=== PATIENT | male | born 1970 | race Caucasian/White ===

== ENCOUNTER 2025-03-08 10:56 | Outpatient (OUT) | payer BC, SELFPAY ==
--- OUTSIDE RECORDS SUMMARY | 2025-02-26 08:40 | XMS_ITS | Encounter Summary ---
Author Organization [facility] Address [address] [place] [address] Care Team Providers Care Sawsmith Name Role Phone Pepe Andrea MD Primary Care Provider [phone] Reason for Visit * Reason Comments Bump on tongue Encounter Details Date Type Department Care Team (Late st Contact Info) Description 02/26/2025 8:40 AM EDT Office Visit [facility] [address] [facility] [address] [place] [address] Beth Lassiter MD [address] [facility] [address] [place] [address] Tongue lesion (Primary Dx) Social History Tobacco Use Types Packs/Day Years Used Date Smoking Tobacco: Never Smokeless Tobacco: Never Alcohol Use Standard Drinks/Week Comments Yes 0 (1 standard drink = 0.6 oz pur e alcohol) Occ Sex and Gender Information Value Date Recorded Sex Assigned at Not on file Legal Sex Male 2:14 PM EDT Gender Identity Not on file Sexual Orientation Not on file documented as of this encounter Last Filed Vital Signs Vital Sign Reading Time Taken Comments Blood Pressure 115/80 02/26/2025 8:33 AM EDT Pulse 69 02/26/2025 8:33 AM EDT Temperature - - Respiratory Rate - - Oxygen Saturation - - Inhaled Oxygen Concentration - - Weight 102 kg (224 lb) 02/26/2025 8:33 AM EDT Height 172.7 cm (5' 8 ) 02/26/2025 8:33 AM EDT Body Mass Index 34.06 02/26/2025 8:33 AM EDT documented in this encounter Progress Notes * Beth Lassiter MD - 02/26/2025 8:40 AM EDT Subjective Patient ID: Jonathan Jones is a 54 y.o. male who presents for Bump on tongue Pt reports one week ago hid dentist found a bump on his tongue she wanted examined. No Pain or bleeding. Pt unaware of lesion till noted by dentist. Review of Systems All other systems reviewed and are negative. No family history on file. Active Ambulatory Problems Diagnosis Date Noted BMI 32.0-32.9,adult 02/23/2025 Depression with anxiety 02/23/2025 Exercise-induced asthma (HCC) 02/23/2025 Shoulder joint pain 02/23/2025 Subacromial impingement of right shoulder 02/23/2025 Resolved Ambulatory Problems Diagnosis Date Noted No Resolved Ambulatory Problems Past Medical History: Diagnosis Date Allergic rhinitis Past Surgical History: Procedure Laterality Date ACHILLES TENDON SURGERY ANKLE ARTHROSCOPY W/ OPEN REPAIR ANTERIOR CRUCIATE LIGAMENT REPAIR No Known Allergies Current Outpatient Medications on File Prior to Visit Medication Sig Dispense Refill Fluticasone-Salmeterol (Wixela Inhub) 100-50 MCG/ACT aerosol powder Inhale 1 puff in the morning and 1 puff before bedtime. 1 each 11 montelukast (Singulair) 4 MG granules Take 4 mg by mouth at bedtime [DISCONTINUED] Fluticasone-Salmeterol 100-50 MCG/ACT aerosol powder No current facility-administered medications on file prior to visit. Objective Last Recorded Vitals Vitals: 02/26/25 0833 BP: 115/80 Pulse: 69 ENT Physical Exam Constitutional Appearance: patient appears well-developed and well-nourished, Head and Face Appearance: head appears normal and face appears atraumatic; Ear Ear comments: Bernabe ears normal Nose External Nose: nares patent bilaterally; external nose normal; Internal Nose: nasal mucosa normal; Oral Cavity/Oropharynx Lips: normal; Teeth: normal; Gums: gingiva normal; Oral mucosa: normal; Hard palate: normal; OC/OP comments: Irregular raised mucosa on dorsal surface of left mid tongue Neck Neck: neck normal; neck palpation normal; Thyroid: thyroid normal; Respiratory Inspection: breathing unlabored; normal breathing rate; Auscultation: breath sounds are clear; Cardiovascular Inspection: extremities are warm and well perfused; no peripheral edema present; Auscultation: regular rate and rhythm; Assessment/Plan Diagnoses and all orders for this visit: Tongue lesion Though I doubt the tongue lesion is malignant, it warrants bx to ensure it is not. Proceed with bx left dorsal tongue documented in this encounter Plan of Treatment Upcoming Encounters Date Type Department Care Team (Late st Contact Info) Description 03/12/2025 4:30 PM EDT Clinical Support [facility] [address] [place] [address] 03/26/2025 4:30 PM EDT Clinical Support [facility] [address] [place] [address] 04/02/2025 4:30 PM EDT Clinical Support [facility] [address] [place] [address] 04/09/2025 4:30 PM EDT Clinical Support [facility] [address] [place] [address] 04/16/2025 4:30 PM EDT Clinical Support [facility] [address] [place] [address] 04/23/2025 4:30 PM EDT Clinical Support [facility] [address] [place] [address] 05/23/2025 4:00 PM EDT Office Visit [facility] [address] [place] [address] Adarsh Mireles MD [address] [place] [address] documented as of this encounter Visit Diagnoses Diagnosis Tongue lesion- Primary Unspecified condition of the tongue documented in this encounter Care Teams Sawsmith Relationship Specialty Start Date End Date Pepe Andrea MD [address] [facility] [place] [address] PCP - General Family Medicine 02/26/25 documented as of this encounter
--- OUTSIDE RECORDS SUMMARY | 2025-03-08 10:58 | XMS_ITS | Encounter Summary ---
Author Organization [facility] Address [address] [place] [address] Care Team Providers Care Leadership Program Internship Name Role Phone Pepe Andrea MD Primary Care Provider [phone] Encounter Details Date Type Department Care Team (Latest Contact Info) Description 02/26/2025 Travel Social History Tobacco Use Types Packs/Day Years [...] on file documented as of this encounter Plan of Treatment Upcoming Encounters Date Type Department Care Team (Late st Contact Info) Description 03/12/2025 4:30 PM EDT Clinical Support [facility] [address] [place] [address] 03/26/2025 4:30 PM EDT Clinical Support [facility] [address] [place] [address] 04/02/2025 4:30 PM EDT Clinical Support [facility] [address] [place] [address] 04/09/2025 4:30 PM EDT Clinical Support [facility] [address] [place] [address] 04/16/2025 4:30 PM EDT Clinical Support [facility] [address] [place] [address] 04/23/2025 4:30 PM EDT Clinical Support [facility] [address] [facility] [place] [address] 05/23/2025 4:00 PM EDT Office Visit [facility] [address] [facility] [place] [address] Adarsh Mireles MD [address] [facility] [place] [address] documented as of this encounter Visit Diagnoses Not on filedocumented in this encounter Care Teams Leadership Program Internship Relationship Specialty Start Date End Date Pepe Andrea MD [address] [facility] [place] [address] PCP - General Family Medicine 02/26/25 documented as of this encounter
--- OUTSIDE RECORDS SUMMARY | 2025-03-08 10:59 | XMS_ITS | Encounter Summary ---
Author Organization [facility] Address [address] [place] [address] Care Team Providers Care Pier Runner Name Role Phone Pepe Andrea MD Primary Care Provider [phone] Encounter Details Date Type Department Care Team (Latest Contact Info) Description 03/06/2025 Outside Procedure [facility] [address] [place] [address] Karen Cain, RN [address] [place], [place] [id number] Seasonal allergic rhinitis, unspecified trigger; Seasonal allergic rhinitis due to pollen; Allergic rhinitis due to animal (cat) (dog) hair and dander Social History Tobacco Use Types Packs/Day Years [...] Clinical Support [facility] [address] [place] [place] [address] 03/26/2025 4:30 PM EDT Clinical Support [facility] [address] [place] [address] 04/02/2025 4:30 PM EDT Clinical Support [facility] [address] [place] [address] 04/09/2025 4:30 PM EDT Clinical Support [facility] [address] [place] [address] 04/16/2025 4:30 PM EDT Clinical Support [facility] [address] [place] [address] 04/23/2025 4:30 PM EDT Clinical Support [facility] [address] [place] [address] 05/23/2025 4:00 PM EDT Office Visit [facility] [address] [place] [address] Adarsh Mireles MD [address] [place] [address] Scheduled Orders Name Type Priority Associated Diagnoses Orde r Schedule Immunotherapy prescription Procedures Routine Seasonal allergic rhinitis, unspecified trigger Seasonal allergic rhinitis due to pollen Allergic rhinitis due to animal (cat) (dog) hair and dander Ordered: 03/06/2025 documented as of this encounter Visit Diagnoses Diagnosis Seasonal allergic rhinitis, unspecified trigger Seasonal allergic rhinitis due to pollen Allergic rhinitis due to animal (cat) (dog) hair and dander documented in this encounter Care Teams Pier Runner Relationship Specialty Start Date End Date Pepe Andrea MD [address] [facility] [place] [place] [address] PCP - General Family Medicine 02/26/25 documented as of this encounter
--- OUTSIDE RECORDS SUMMARY | 2025-03-08 10:59 | XMS_ITS | Clinical Summary ---
Author Organization [facility] Address [address] [place] [address] Care Team Providers Care Calciner Operator Name Role Phone Pepe Andrea MD Primary Care Provider [phone] Allergies No known active allergies Medications montelukast (Singulair) 4 MG granules Take 4 mg by mouth at bedtime Active Fluticasone-Salme terol (Wixela Inhub) 100-50 MCG/ACT aerosol powderIndications :Moderate persistent asthma with acute exacerbation (HCC) Inhale 1 puff in the morning and 1 puff before bedtime. 1 each 11 5 Active Fluticasone-Salme terol 100-50 MCG/ACT aerosol powder 5 02/27/20 25 Discontinu ed(Therapy completed) Active Problems Problem Noted Date Diagnosed Date BMI 32.0-32.9,adult 02/23/2025 Depression with anxiety 02/23/2025 Exercise-induced asthma 02/23/2025 Shoulder joint pain 02/23/2025 Subacromial impingement of right shoulder 2024 Encounters Date Type Department Care Team Description 03/06/2025 Outside Procedure [facility] [address] [place] [address] Karen Cain RN Seasonal allergic rhinitis, unspecified trigger; Seasonal allergic rhinitis due to pollen; Allergic rhinitis due to animal (cat) (dog) hair and dander 02/26/2025 8:40 AM EDT Office Visit [facility] [address] [place] [address] Beth Lassiter MD Tongue lesion (Primary Dx) 02/26/2025 Bamboo flowsheet [facility] [address] [place] [address] Beth Lassiter MD 02/26/2025 Travel 02/12/2025 11:00 AM EDT Office Visit [facility] [address] [facility] [address] [place] [address] Adarsh Mireles MD Moderate persistent asthma with acute exacerbation (HCC) (Primary Dx); Allergic rhinitis due to mold 02/12/2025 Bamboo flowsheet [facility] [address] [facility] [address] [place] [address] Adarsh Mireles MD 02/12/2025 Travel from Last 3 Months Social History Tobacco Use Types Packs/Day Years Used Date Smoking Tobacco: Never Smokeless Tobacco: Never Tobacco Cessation:Counseling Given: Not Answered Alcohol Use Standard Drinks/Week Comments Yes 0 (1 standard drink = 0.6 oz pur e alcohol) Occ Sex and Gender Information Value Date Recorded Sex Assigned at Not on file Legal Sex Male 2:14 PM EDT Gender Identity Not on file Sexual Orientation Not on file Last Filed Vital Signs Vital Sign Reading [...] Mass Index 34.06 02/26/2025 8:33 AM EDT Plan of Treatment Upcoming Encounters Date Type Department Care Team (Late st Contact Info) Description 03/12/2025 4:30 PM EDT Clinical Support [facility] [address] [facility] [address] [place] [address] 03/26/2025 4:30 PM EDT Clinical Support [facility] [address] [facility] [address] [place] [address] 04/02/2025 4:30 PM EDT Clinical Support [facility] [address] [place] [address] 04/09/2025 4:30 PM EDT Clinical Support [facility] [address] [place] [address] 04/16/2025 4:30 PM EDT Clinical Support [facility] [address] [place] [address] 04/23/2025 4:30 PM EDT Clinical Support [facility] [address] [place] [address] 05/23/2025 4:00 PM EDT Office Visit [facility] [address] [place] [address] Adarsh Mireles MD [address] [place] [address] Health Maintenance Due Date Last Done Comments CT Colonography 1968 Colonoscopy 1968 Colorectal Cancer Screening 1968 FIT-DNA 1968 FIT 1968 FOBT 1968 Sigmoidoscopy 1968 Influenza Vaccine (#1) 2025 4, 05/06/2023, 10/15/2022, Additional history exists Insurance BS Care Teams Calciner Operator Relationship Specialty Start Date End Date Pepe Andrea MD [address] [place] [address] PCP - General Family Medicine 02/26/25
--- OUTSIDE RECORDS SUMMARY | 2025-03-08 10:59 | XMS_ITS | Patient Health Record ---
Author Organization [facility] Address [address] [place] [address] Care Team Providers Care Epic Cadence Specialists Name Role Phone [facility] Primary Care Provider Unavailable Allergies No Known Allergies Reason For Referral No Information Medications Medication SIG (Take, Route, Fr equency, Duration) Notes Start Date End Date Status Venlafaxine Besylate ER Active Immunizations Vaccine Route Administration Date Status Comme nts Flu Vaccine (Given in Past) Unspecified Unknown 07/30/2022 Administered z2022 FluBLOK Quad PFS (0.5m L Admin) 18 y/o & older Unknown 10/15/2022 Administered Social History Tobacco Use: Social History Observation Description Date Details (start date - stop date) Never Smoker NA - NA Tobacco Use Question Answer Notes Are you a Never smoker Problems Problem Type SNOMED Code ICD Code Onset Dates Problem Status W/U Status Risk Notes Finding [id number] BMI 32.0-32.9,ad ult (Z68.32) Active confirmed Plan Of Treatment No Information Insurance Providers Payer Name Payer Address Payer Phone Subscriber Number Group Number Insured Name Patient Relationship to Insured Coverage Start Date Coverage End Date [facility] [address] [place] [address] [id number] Jonathan Jay Self - patient is the insured Medical (General) History Medical History History ICD Code depression Surgical History Surgery Date(Month/Year) achilles tendon rupture repair Knee repair/fx
--- OUTSIDE RECORDS SUMMARY | 2025-03-08 10:59 | XMS_ITS | Encounter Summary ---
Author Organization [facility] Address [address] [place] [address] Care Team Providers Care Cloth Sander Name Role Phone Pepe Andrea MD Primary Care Provider [phone] Encounter Details Date Type Department Care Team (Late st Contact Info) Description 02/26/2025 Bamboo flowsheet [facility] [address] [facility] [address] [place] [address] Beth Lassiter MD [address] [place] [address] Social History Tobacco Use Types Packs/Day Years [...] [address] [place] [address] 03/26/2025 4:30 PM EDT Clinical Support [facility] [address] [place] [address] 04/02/2025 4:30 PM EDT Clinical Support [facility] [address] [place] [address] 04/09/2025 4:30 PM EDT Clinical Support [facility] [address] [place] [address] 04/16/2025 4:30 PM EDT Clinical Support [facility] [address] [place] [address] 04/23/2025 4:30 PM EDT Clinical Support [facility] [address] [place] [address] 05/23/2025 4:00 PM EDT Office Visit [facility] [address] [place] [address] Adarsh Mireles MD [address] [place] [address] documented as of this encounter Visit Diagnoses Not on filedocumented in this encounter Care Teams Cloth Sander Relationship Specialty Start Date End Date Pepe Andrea MD [address] [facility] [place] [address] PCP - General Family Medicine 02/26/25 documented as of this encounter
--- OUTSIDE RECORDS SUMMARY | 2025-03-08 10:59 | XMS_ITS | Clinical Summary ---
Author Organization [facility] Address [address] [place] [address] Care Team Providers Care Market Development Director Name Role Phone Unavailable Primary Care Provider Unavailabl e Allergies No known active allergies Medications venlafaxine (EFFEXOR) 75 mg tablet Take 75 mg by mouth once daily. Active Active Problems No known active problems Social History Tobacco Use Types Packs/Day Years Used Date Smoking Tobacco: Never Assessed Area Deprivation Index Answer Date Celestino rded National Score (1-100), lower number is lower ri sk 40 04/02/2023 State Score (1-10), lower number is lower risk 2 04/02/2023 Data from: https://www.neighborhoodatlas.medicine.[facility].edu/. Last address used for calculation [address] 04/02/2023 Sex and Gender Information Value Date Recorded Sex Assigned at Not on file Legal Sex Male 9:26 AM EST Gender Identity Not on file Sexual Orientation Not on file Plan of Treatment Health Maintenance Due Date Last Done Comments Anxiety Screening 1986 Depression Screening 1986 HIV Screening 1986 Hepatitis C Screening 1986 DTaP,Tdap,Td Vaccine (1 - Tdap) 1987 Hepatitis B Vaccine (1 of 3 - 19+ 3-dose series) 03/[address] Colonography 2013 Cologuard (FIT-DNA) 2013 Colonoscopy 2013 Colorectal Cancer Screening 2013 Diabetes Screening 2013 Fecal Occult Blood 2013 Prostate Cancer Screening Discussion 2013 Sigmoidoscopy 2013 Pneumococcal Vaccine: 50+ (1 of 1 - PCV) 2018 Shingrix Vaccine (1 of 2) 2018 Covid-19 Vaccine (1 - 2023- season) 2024 Influenza Vaccine (#1) 2025 Insurance [facility]
== END 2025-03-08 10:57 | disposition home or self-care (01) ==
LOC: PST 10:56
PROVIDERS: Visit Provider Otolaryngology
DX: Z01.818 Encounter for other preprocedural examination (principal)